=== PATIENT | male | born 1990 | race African-American/Black ===

== ENCOUNTER 2021-04-15 04:02 | Inpatient (IN) | payer OTHER ==
[2021-04-15] MEDS ORDERED: Fentanyl 100 MCG/2 ML VIAL ONE (04:05)
[2021-04-15] MEDS ORDERED: Boostrix 0.5 ML (Tdap) VIAL ONE (04:12)
[2021-04-15 04:27] LABS: #Eosinphils 0.1 thou/uL (0.0-0.7); #Lymphocytes 2.9 thou/uL (1.20-3.40); #Monocytes 0.5 thou/uL (0.11-0.59); #Neutrophils 10.8 thou/uL (1.40-6.50); %Basophils 0.1 % (0.0-1.0); %Eosinophils 0.8 % (0.0-10.0); %Lymphocytes 20.3 % (21.0-51.0); %Monocytes 3.6 % (0.0-10.0); %Neutrophils 75.2 % (42.0-75.0); Hemoglobin 14.5 g/dL (14.0-18.0); Mean Corpuscular HGB CONC 34.3 g/dL (32.0-36.0); Mean Corpuscular Volume 98.9 fL (78.0-98.0); Mean Platelet Volume 8.4 fL (7.4-10.4); Platelet Count 226 thou/uL (130-400); RBC Distribution Width 11.8 % (11.5-14.5); Red Blood Cell (RBC) Count 4.27 mill/uL (4.70-6.10); White Blood Cell (WBC) Count 14.3 thou/uL (4.8-10.8)
[2021-04-15 04:44] LABS: PTT 25.8 sec (22.9-36.1); Prothrombin Time 12.8 sec (12.0-14.7)
[2021-04-15] MEDS ORDERED: Fentanyl CADD 100 ML IV SCH ×2 (04:45→05:45)
[2021-04-15 05:08] LABS: Actual Bicarbonate (HCO3a) 23.4 mEq/L (22-28); Analyzer IN Cardio ER; Base Excess (BEa) -1.6 mEq/L (-2.0 to +3.0); CO2 Tension 40.9 mmHg (35.0-45.0); Calcium, Ionized (arterial) 1.08 mmol/L (1.12-1.30); Carboxyhemoglobin (COHb) 1.2 gm% (0.0-3.0); O2 Tension (PaO2), arterial 499.1 mmHg (80.0-100.0); Potassium - ABG Lab 2.97 mmol/L (3.70-5.30); pH, Arterial 7.38 (7.35-7.45)
[2021-04-15 05:19] LABS: Anion Gap 14 mmol/L (10-20); Carbon Dioxide 24 mmol/L (22-29); Chloride 103 mmol/L (98-107); Potassium 3.1 mmol/L (3.5-5.1); Sodium 138 mmol/L (136-145)
[2021-04-15 05:20] LABS: ALT (SGPT) 238 U/L (8-55); AST (SGOT) 240 U/L (5-34); Albumin 3.4 g/dL (3.5-5.0); Alkaline Phosphatase 79 U/L (40-110); BUN (Urea Nitrogen) 11 mg/dL (8.9-20.6); Bilirubin, Total 0.7 mg/dL (0.2-1.2); Calc. Creatinine Clearance 0 mL/min (70-130); Calcium 8.1 mg/dL (7.8-10.44); Globulin 3.2 g/dL (2.4-3.5); Glucose 194 mg/dL (70-105); Protein, Total 6.6 g/dL (6.0-8.3)
[2021-04-15] MEDS ORDERED: Ondansetron PF 4 MG/2 ML Vial IVP PRN (05:25)
[2021-04-15] MEDS ORDERED: Ventilator Sedation Protocol 1 EACH FS ONE (05:25)
[2021-04-15] MEDS ORDERED: Dextrose 5% in Water 1,000 ML IV PRN (05:25)
[2021-04-15] MEDS ORDERED: Dextrose 50% Abboject 50 ML SYRINGE SLOW IVP PRN (05:25)
[2021-04-15 05:31] LABS: ALV-art Gradient 162.775 mmHg (0-20); Puncture Site LRA
[2021-04-15] MEDS ORDERED: Propofol 1,000 MG/100 ML VIAL IV PRN (05:45)
[2021-04-15] MEDS ORDERED: Fentanyl BOLUS 250 ML IVPB PRN (05:45)
[2021-04-15] MEDS ORDERED: Lorazepam 2 MG/ML VIAL SLOW IVP PRN (05:45)
[2021-04-15] MEDS ORDERED: Propofol BOLUS 1,000 MG/100 ML VIAL IV PRN (05:45)
[2021-04-15 05:53] LABS: Phosphorus 3.4 mg/dL (2.3-4.7)
[2021-04-15 05:55] LABS: CK (CPK) 888 U/L (30-200); Magnesium 1.6 mg/dL (1.6-2.6)
[2021-04-15] MEDS ORDERED: Bacitracin 1 PK ONE (06:31)
[2021-04-15 07:11] LABS: Lactic Acid 3.1 mmol/L (0.5-2.2)
[2021-04-15] MEDS ORDERED: Magnesium 2 GM/50 ML 2 GM in Premix Bag 1 BAG IVPB SCH (07:30)
[2021-04-15] MEDS ORDERED: Calcium Chloride 13.6 MEQ in Sodium Chloride 0.9% 100 ML IVPB SCH (07:30)
[2021-04-15] MEDS ORDERED: Potassium Phosphate 30 MMOL in Sodium Chloride 0.9% 250 ML 250 ML IVPB SCH (07:30)
[2021-04-15 08:06] LABS: SARS-CoV-2 NAA Rapid Test Not Detected (NotDetected)
[2021-04-15] MEDS ORDERED: Iopamidol-370 76% 500 ML 1 ML ONE (08:48)
[2021-04-15] MEDS: Famotidine/PF 20 mg/2ml Vial SLOW IVP SCH ×2 (09:03→22:00)
[2021-04-15] MEDS: Sodium Chloride 0.9% 1,000 ML IV SCH ×2 (09:04→16:27)
[2021-04-15 09:46] VITALS: BMI 23.8
[2021-04-15] MEDS: CEFAZOLIN 2 GM in Premix Bag 1 BAG IVPB SCH ×2 (13:39→22:04)
[2021-04-15] MEDS ORDERED: Dexamethasone 4 mg/ml Vial SLOW IVP SCH (14:15)
[2021-04-15] MEDS ORDERED: Lidocaine 1% (PF) 30 ML VIAL SC SCH (14:30)
[2021-04-16] MEDS: Morphine 2 MG/ML VIAL SLOW IVP PRN ×3 (01:15→05:44)
[2021-04-16] MEDS: Sodium Chloride 0.9% 1,000 ML IV SCH ×3 (02:44→16:20)
[2021-04-16] MEDS: CEFAZOLIN 2 GM in Premix Bag 1 BAG IVPB SCH ×2 (05:45→14:30)
[2021-04-16 06:17] LABS: #Lymphocytes 1.3 thou/uL (1.20-3.40); #Monocytes 0.8 thou/uL (0.11-0.59); #Neutrophils 7.4 thou/uL (1.40-6.50); %Eosinophils 0.1 % (0.0-10.0); %Lymphocytes 13.5 % (21.0-51.0); %Monocytes 8.6 % (0.0-10.0); %Neutrophils 77.8 % (42.0-75.0); Hemoglobin 14.1 g/dL (14.0-18.0); Mean Corpuscular HGB CONC 33.1 g/dL (32.0-36.0); Mean Corpuscular Hemoglobin 33.4 pg (27.0-31.0); Mean Platelet Volume 7.5 fL (7.4-10.4); Platelet Count 192 thou/uL (130-400); RBC Distribution Width 11.9 % (11.5-14.5); Red Blood Cell (RBC) Count 4.21 mill/uL (4.70-6.10); White Blood Cell (WBC) Count 9.5 thou/uL (4.8-10.8)
[2021-04-16 06:19] LABS: Lactic Acid 1.8 mmol/L (0.5-2.2)
[2021-04-16 06:23] LABS: Phosphorus 3.5 mg/dL (2.3-4.7)
[2021-04-16 07:12] LABS: Anion Gap 11 mmol/L (10-20); BUN (Urea Nitrogen) 10 mg/dL (8.9-20.6); CK (CPK) 3940 U/L (30-200); Calc. Creatinine Clearance 133 mL/min (70-130); Calcium 9.1 mg/dL (7.8-10.44); Carbon Dioxide 26 mmol/L (22-29); Chloride 102 mmol/L (98-107); Glucose 126 mg/dL (70-105); Magnesium 1.8 mg/dL (1.6-2.6); Potassium 5.2 mmol/L (3.5-5.1); Sodium 134 mmol/L (136-145)
[2021-04-16] MEDS ORDERED: traMADol HCl 50 MG TAB PO PRN ×2 (07:15)
[2021-04-16] MEDS ORDERED: Cyclobenzaprine 10 MG TAB PO PRN (07:15)
[2021-04-16] MEDS: Famotidine/PF 20 mg/2ml Vial SLOW IVP SCH ×2 (08:41→21:16)
[2021-04-16] MEDS: Gabapentin 300 MG CAP PO SCH ×3 (08:41→21:16)
[2021-04-16] MEDS: Senokot S 8.6-50 MG TAB PO SCH ×2 (08:42→21:16)
[2021-04-16] MEDS: Acetaminophen 500 MG TAB PO SCH ×3 (08:43→21:17)
[2021-04-16] MEDS: Polyethylene Glycol 3350 17 GM Packet PO SCH (08:44)
[2021-04-16] MEDS: Enoxaparin Sodium 30 MG/0.3 ML SYRINGE SC SCH ×2 (08:56→21:18)
[2021-04-16] MEDS: Ibuprofen 200 MG TAB PO SCH ×2 (14:28→21:16)
[2021-04-17] MEDS: Sodium Chloride 0.9% 1,000 ML IV SCH (01:35)
[2021-04-17] MEDS: Acetaminophen 500 MG TAB PO SCH ×2 (01:39→08:29)
[2021-04-17] MEDS: Ibuprofen 200 MG TAB PO SCH (06:10)
[2021-04-17 07:45] LABS: Anion Gap 10 mmol/L (10-20); BUN (Urea Nitrogen) 6 mg/dL (8.9-20.6); CK (CPK) 2643 U/L (30-200); Calc. Creatinine Clearance 161 mL/min (70-130); Calcium 8.5 mg/dL (7.8-10.44); Carbon Dioxide 28 mmol/L (22-29); Chloride 104 mmol/L (98-107); Glucose 98 mg/dL (70-105); Magnesium 1.6 mg/dL (1.6-2.6); Potassium 3.9 mmol/L (3.5-5.1); Sodium 138 mmol/L (136-145)
[2021-04-17] MEDS ORDERED: Magnesium Sulfate 3 GM in Sodium Chloride 0.9% 100 ML IV SCH (08:00)
[2021-04-17 08:22] VITALS: TEMP 98
[2021-04-17] MEDS: Enoxaparin Sodium 30 MG/0.3 ML SYRINGE SC SCH (08:28)
[2021-04-17] MEDS: Polyethylene Glycol 3350 17 GM Packet PO SCH (08:28)
[2021-04-17] MEDS: Senokot S 8.6-50 MG TAB PO SCH (08:28)
[2021-04-17] MEDS: Gabapentin 300 MG CAP PO SCH (08:29)
[2021-04-17] MEDS ORDERED: Cyclobenzaprine 10 MG TAB PO SCH (15:00)
[2021-04-17 15:55] VITALS: BP 117/71
== END 2021-04-17 17:17 | disposition home or self-care (01) | DRG 551 ==
LOC: ERS 04:02 → CCU 05:25 → SURG A 19:39
PROVIDERS: ADMIT Surgery; ATTEND Surgery
PROC: 5A1935Z Respiratory Ventilation, Less than 24 Consecutive Hours (ICD-10-PCS; principal; 2021-04-15)
PROC: 0SS9XZZ Reposition Right Hip Joint, External Approach (ICD-10-PCS; 2021-04-15)
PROC: 0D9670Z Drainage of Stomach with Drainage Device, Via Natural or Artificial Opening (ICD-10-PCS; 2021-04-15)
PROC: 0BH17EZ Insertion of Endotracheal Airway into Trachea, Via Natural or Artificial Opening (ICD-10-PCS; 2021-04-15)
PROC: 0HQ4XZZ Repair Neck Skin, External Approach (ICD-10-PCS; 2021-04-15)
PROC: 0HQ0XZZ Repair Scalp Skin, External Approach (ICD-10-PCS; 2021-04-15)
PROC: 0HQKXZZ Repair Right Lower Leg Skin, External Approach (ICD-10-PCS; 2021-04-15)
PROC: 0HQ6XZZ Repair Back Skin, External Approach (ICD-10-PCS; 2021-04-15)
DX: S22.049A Unspecified fracture of fourth thoracic vertebra, initial encounter for closed fracture (principal); J96.00 Acute respiratory failure, unspecified whether with hypoxia or hypercapnia; S06.0X9A Concussion with loss of consciousness of unspecified duration, initial encounter; S32.009A Unspecified fracture of unspecified lumbar vertebra, initial encounter for closed fracture; S73.014A Posterior dislocation of right hip, initial encounter; M62.82 Rhabdomyolysis; E87.2 Acidosis; S22.059A Unspecified fracture of T5-T6 vertebra, initial encounter for closed fracture; Z23 Encounter for immunization; Z20.822 Contact with and (suspected) exposure to COVID-19; S11.91XA Laceration without foreign body of unspecified part of neck, initial encounter; S01.01XA Laceration without foreign body of scalp, initial encounter; S81.011A Laceration without foreign body, right knee, initial encounter; R40.2362 Coma scale, best motor response, obeys commands, at arrival to emergency department; R40.2132 Coma scale, eyes open, to sound, at arrival to emergency department; R40.2252 Coma scale, best verbal response, oriented, at arrival to emergency department; S41.012A Laceration without foreign body of left shoulder, initial encounter; S41.011A Laceration without foreign body of right shoulder, initial encounter; S21.219A Laceration without foreign body of unspecified back wall of thorax without penetration into thoracic cavity, initial encounter; S01.312A Laceration without foreign body of left ear, initial encounter; S61.412A Laceration without foreign body of left hand, initial encounter; V43.62XA Car passenger injured in collision with other type car in traffic accident, initial encounter; Y92.488 Other paved roadways as the place of occurrence of the external cause; Z78.1 Physical restraint status
CPT/HCPCS: 31500; 36415; 36416; 36600; 70450; 70486; 71045; 71260; 72125; 72170; 74177; 80048; 80053; 82550; 82805; 83605; 83735; 84100; 85025; 85610; 85730; 86850; 86900; 86901; 90471; 90715; 94760; 96365; 96366; 96375; 96376; 99292; G0390; J0690; J1100; J1650; J2270; J3010; J3475; J3490; J7050; Q9967; S0028; U0002